=== PATIENT | male | born 1955 | race Caucasian/White ===

== ENCOUNTER → 2017-02-07 | Outpatient (CLI) | payer OTHER ==
--- NOTE | ~2017-02-07 | CR150 ---
[facility]. [facility] A Service of [facility] RADIOLOGY TEXT RESULTS PATIENT: GUMARO FRENCH LOCATION: [facility] : 53 UNIT #: [id number] AGE: [address]: Celestino Chan MD SEX: M ORDER DR: [id number] [place] [address] [id number] O MR#: [id number] Acc #: [id number] NAME: GUMARO FRENCH : 1955 SEX: M STUDY DATE/TIME: 02/07/2017 14:11 UNIT: [facility]AD ROOM: STUDY DESCRIPTION: CR Hip Min 2 Views Lt Attending Physician: Celestino Chan M.D. Referring Physician: Celestino Chan M.D. Ordering Physician: Celestino Chan M.D. Primary Care Physician: Meena Ferreira M.D. MEDICAL IMAGING REPORT This report is preliminary unless electronic signature is present. EXAM Left hip 02/07/2017 HISTORY 61-year-old male with left hip pain for 2 months. No known injury. COMPARISON None. FINDINGS 2 views of the left hip demonstrate no acute fracture or dislocation. Mild left hip joint space narrowing. Bony pelvis and sacrum intact. Bilateral iliac stents. Soft tissues are unremarkable. IMPRESSION No acute fracture or dislocation. Mild left hip joint space narrowing. Dictated by... Shashi Dodd M.D. THIS IS AN ELECTRONICALLY VERIFIED REPORT Shashi Dodd M.D. at 02/08/2017 3:24 PM David TD: 02/08/2017 08:22 JOB #: [id number] MEDICAL IMAGING REPORT Page 1 of 1
--- NOTE | ~2017-02-07 | CR151 ---
[facility] A Service of [facility] RADIOLOGY TEXT RESULTS PATIENT: GUMARO FRENCH LOCATION: [facility] : 53 UNIT #: [id number] AGE: [address]: Celestino Chan MD SEX: M ORDER DR: [id number] [place] [address] [id number] O MR#: [id number] Acc #: [id number] NAME: GUMARO FRENCH : 1955 SEX: M STUDY DATE/TIME: 02/07/2017 14:11 UNIT: [facility] ROOM: STUDY DESCRIPTION: CR Hip Min 2 Views Rt Attending Physician: Celestino Chan M.D. Referring Physician: Celestino Chan M.D. Ordering Physician: Celestino Chan M.D. Primary Care Physician: Meena Ferreira M.D. MEDICAL IMAGING REPORT This report is preliminary unless electronic signature is present. EXAM Right hip, 02/07/2017 HISTORY 61-year-old male with right hip pain for 2 months. No specific injury. COMPARISON None FINDINGS Two views of the right hip demonstrate no acute fracture or dislocation. Mild right hip joint space narrowing. Bony pelvis intact. Bilateral iliac stents. Soft tissues are unremarkable. IMPRESSION No acute fracture or dislocation. Mild right hip joint space narrowing. Dictated by... Shashi Dodd M.D. THIS IS AN ELECTRONICALLY VERIFIED REPORT Shashi Dodd M.D. at 02/08/2017 3:24 PM Beau TD: 02/08/2017 08:22 JOB #: [id number] MEDICAL IMAGING REPORT Page 1 of 1
== END | disposition home or self-care (01) ==
LOC: SRAD 13:54
DX: M25.551 Pain in right hip (principal); M25.552 Pain in left hip
CPT/HCPCS: 73502

== ENCOUNTER → 2017-03-28 | Outpatient (CLI) | payer OTHER ==
--- NOTE | ~2017-03-28 | TH ---
Unit #: [id number] #: [id number] Patient: GUMARO FRENCH [id number] [address] [address] [id number] O MR#: [id number] NAME: GUMARO FRENCH. : 1955 SEX: M STUDY DATE/TIME: 03/28/2017 UNIT: [facility] ROOM: STUDY DESCRIPTION: Stress test Attending Physician: Jerry Marshall M.D. Referring Physician: Jerry Marshall M.D. Primary Care Physician: Celestino Chan M.D. CARDIOLOGY REPORT PROCEDURE PERFORMED Cardiolite study. PROCEDURE This 61-year-old patient was exercised on a treadmill, achieving a heart rate of 144 per minute. At the peak of exercise the patient was injected with 32.4 mCi of Technetium 99 Cardiolite, and images were obtained according to the standard SPECT protocol. For rest images, 10.97 mCi of Cardiolite were injected. Images were reviewed in both phases. FINDINGS Overall study quality is excellent. LV cavity size is normal in both images. There is no lung activity. RV is normal. Rotating raw data showed no significant artifact, soft tissue attenuation or GI uptake. Review of the SPECT images showed normal homogeneous radiotracer concentration throughout the myocardium in both the stress and rest images. Gated images showed normal LV wall thickening and wall motion with an estimated LV ejection fraction of 63%. IMPRESSION 1. Myocardial perfusion imaging is normal. 2. No evidence of ischemia or infarct. 3. Normal LV dimensions. 4. Normal systolic LV function with an estimated LV ejection fraction of 63%. Dictated by... Radha Pardo/anabela TD: 03/29/2017 11:10 JOB #: [id number] Unit #: [id number] #: [id number] Patient: GUMARO FRENCH CARDIOLOGY REPORT Page 1 of 1 X Pao Doe MD CARDIOLOGY REPORT
--- NOTE | ~2017-03-28 | ST ---
Unit #: [id number] #: [id number] Patient: GUMARO FRENCH [id number] [address] [address] [id number] O MR#: [id number] NAME: GUMARO FRENCH. : 1955 SEX: M STUDY DATE/TIME: 03/28/2017 UNIT: [facility] ROOM: STUDY DESCRIPTION: Stress test Attending Physician: Jerry Marshall M.D. Referring Physician: Jerry Marshall M.D. Primary Care Physician: Celestino Chan M.D. CARDIOLOGY REPORT PROCEDURE PERFORMED Nuclear study. PROCEDURE Baseline EKG: Normal sinus rhythm, nonspecific ST-T changes. Resting heart rate is 68 per minute. Blood pressure 140/70. This 61-year-old patient was exercised on a modified Vernon protocol for 4 minutes, achieving a heart rate of 144 per minute, which is 91% of the targeted heart rate. Peak blood pressure was 175/83. Maximum workload attained was 4.6 METS. Exercise was terminated because of fatigue. No ischemic changes were noted. No arrhythmias were noted. Blood pressure response was normal. INTERPRETATION 1. Negative exercise test for ischemia. 2. No arrhythmias noted. 3. Normal blood pressure response to exercise. 4. Correlate with the Cardiolite study. Dictated by... Radha Pardo/anabela TD: 03/29/2017 11:06 JOB #: [id number] CARDIOLOGY REPORT Page 1 of 1 X Pao Doe MD CARDIOLOGY REPORT
== END | disposition home or self-care (01) ==
LOC: CNUC 08:19
DX: E78.5 Hyperlipidemia, unspecified (principal); I10 Essential (primary) hypertension; I51.89 Other ill-defined heart diseases
CPT/HCPCS: 78452; 93017; 93306; A9500